=== PATIENT | female | born 1960 | race Two or more races ===

== ENCOUNTER 2022-08-07 13:30 | Emergency (ER) | payer OTHER ==
[~2022-08-07] VITALS: Ht 149.9 cm; Wt 86.2 kg
[2022-08-07 13:49] VITALS: BP 125/99
[2022-08-07] MEDS ORDERED: LIDOCAINE 2%HCL (LOCAL ANESTH.) INJ 20ML MDV ID ONE ×2 (16:45→18:30)
[2022-08-07] MEDS ORDERED: BACITRACIN TOP OINT 1 UD PKG TOP ONE ×2 (16:45→18:30)
[2022-08-07] MEDS ORDERED: TETANUS-DIPTH-ACEL PERTUSSIS 0.5ML SYR Tdap IM ONE (16:45)
[2022-08-07] MEDS ORDERED: DICL50TA2 PO (17:20)
[2022-08-07] MEDS ORDERED: CEFD300C2 PO (17:20)
[2022-08-07] MEDS ORDERED: TRAM50TA2 PO (19:16)
[2022-08-07] MEDS ORDERED: HYDROcodone-ACET 7.5/325MG TAB PO ONE (19:30)
== END 2022-08-07 19:31 | disposition home or self-care (01) ==
LOC: ER 13:30
DX: S81.821A Laceration with foreign body, right lower leg, initial encounter (principal); E03.9 Hypothyroidism, unspecified; Z79.899 Other long term (current) drug therapy; W01.0XXA Fall on same level from slipping, tripping and stumbling without subsequent striking against object, initial encounter; Y93.89 Activity, other specified; Y92.89 Other specified places as the place of occurrence of the external cause; Y99.8 Other external cause status
CPT/HCPCS: 12002; 73590; 90471; 90715